=== PATIENT | male | born 1970 | race Two or more races ===

== ENCOUNTER 2019-06-24 18:10 | Emergency (ER) | payer OTHER ==
[~2019-06-24] VITALS: Ht 172.7 cm; Wt 80.0 kg
[2019-06-24 20:01] LABS: CHLORIDE 101 mEq/L (98-107)
[2019-06-24 20:03] LABS: HEMATOCRIT. 41.9 % (42.0-52.0); HEMOGLOBIN. 14.6 g/dL (14.0-18.0); MEAN CORPUSCULAR HEMOGLOBIN 33.2 pg (28.0-32.0); MEAN CORPUSCULAR VOLUME 95.3 fL (80.0-94.0); MEAN PLATELET VOLUME 8.7 fl (7.4-10.4); PLATELET 64 x1000/uL (130-400); RED BLOOD CELL COUNT 4.39 mill/uL (4.7-6.1); RED CELL DISTRIBUTION WIDTH 13.8 % (11.6-14.6)
[2019-06-24 20:22] LABS: CLARITY URINE CLOUDY (CLEAR); COLOR URINE DARK YELLOW (YELLOW); KETONES URINE 1+ (NEGATIVE); LEUKOCYTE ESTERASE URINE 1+ (NEGATIVE); NITRITE URINE NEGATIVE (NEGATIVE); OCCULT BLOOD URINE 2+ (NEGATIVE); PH URINE 5.5 (4.5-8.0); PROTEIN URINE 3+ (NEGATIVE); SPECIFIC GRAVITY URINE 1.021 (1.005-1.030)
[2019-06-24 21:12] LABS: PLATELET ESTIMATE DECREASED
[2019-06-24 22:15] VITALS: BP 119/75
== END 2019-06-24 22:16 | disposition home or self-care (01) ==
LOC: ER 18:10
DX: R56.9 Unspecified convulsions (principal); F10.20 Alcohol dependence, uncomplicated; R41.0 Disorientation, unspecified; R55 Syncope and collapse; Y90.9 Presence of alcohol in blood, level not specified
CPT/HCPCS: 36415; 71045; 81003; 83880; 84484; 93005; 99284

== ENCOUNTER 2019-06-25 01:03 | Emergency (ER) | payer OTHER ==
[~2019-06-25] VITALS: Ht 172.7 cm; Wt 75.0 kg
[2019-06-25] MEDS ORDERED: DEXT 5%/0.45% NACL 1000ML 1,000 ML IV ONE (02:06)
[2019-06-25] MEDS ORDERED: ONDANSETRON HCL 4MG/2ML INJ IV STA (02:06)
[2019-06-25] MEDS ORDERED: LEVETIRACETAM 500MG PREMIX 100 ML IV ONE (02:15)
[2019-06-25] MEDS ORDERED: MAGNESIUM 2 G PREMIX 50 ML IV ONE (02:15)
[2019-06-25] MEDS ORDERED: LORAZEPAM 2MG/ML CPJ IV ONE (02:15)
[2019-06-25 03:38] VITALS: BP 149/89
== END 2019-06-25 03:46 | disposition short-term general hospital (02) ==
LOC: ER 01:03
DX: S00.511A Abrasion of lip, initial encounter (principal); R56.9 Unspecified convulsions; F10.20 Alcohol dependence, uncomplicated; X58.XXXA Exposure to other specified factors, initial encounter; Y93.89 Activity, other specified; Y92.89 Other specified places as the place of occurrence of the external cause; Y99.8 Other external cause status; Y90.9 Presence of alcohol in blood, level not specified
CPT/HCPCS: 82962; 96365; 96368; 96375; 99285; J1953; J2060; J2405; J3475; Z7610